=== PATIENT | female | born 1975 | race Caucasian/White ===

== ENCOUNTER 2021-06-26 22:31 | Emergency (ER) | payer OTHER ==
[~2021-06-26] VITALS: Ht 165.1 cm; Wt 60.0 kg
[2021-06-26 22:50] VITALS: BP 122/76
[2021-06-26] MEDS ORDERED: LACTATED RINGERS 1,000 ML IV SCH ×2 (23:15)
== END 2021-06-26 23:28 | disposition home or self-care (01) ==
LOC: ER 22:31
DX: F10.99 Alcohol use, unspecified with unspecified alcohol-induced disorder (principal)
CPT/HCPCS: 99283